=== PATIENT | female | born 1930 | race Caucasian/White ===

== ENCOUNTER 2016-12-28 10:29 | Outpatient (CLI) | payer SELFPAY | END 2016-12-28 10:30 | disposition EMS.NT | LOC: EMS 10:29 | PROVIDERS: ATTEND Surgery | DX: R55 Syncope and collapse (principal) ==

== ENCOUNTER 2017-11-04 20:46 | Outpatient (CLI) | payer SELFPAY | END 2017-11-04 20:47 | disposition E | LOC: EDSEX 20:46 → EMS 20:46 | PROVIDERS: ATTEND Surgery ==